=== PATIENT | male | born 1965 | race Two or more races ===

== ENCOUNTER 2017-12-19 09:14 | Inpatient (IN) | payer MEDICAID, MEDICARE ==
[~2017-12-19] VITALS: Ht 172.7 cm; Wt 72.6 kg
--- NOTE | 2017-12-19 10:25 | NUR ---
PT WALKED IN TO ER, STATING "I NEED HELP, I USED CRYSTAL METH YESTERDAY AND I HAD ALCOHOL THIS AM, I JUST CAN'T KEEP DOING." PT ALSO C/O SI W/O PLAN. DENIES HI. PT IS CALM AND COOPERATIVE UPON ASSESSEMENT, NO AGGRESSIVE BEHAVIOR. ASSISTED TO ED BED 11. NAD RR EVEN AND UNLABORED.SKIN IS WARM AND NON DIAPHORETIC.
[2017-12-19] MEDS ORDERED: OLANZAPINE 5 MG TABLET ONE (10:28)
[2017-12-19] MEDS ORDERED: OLANZAPINE 5 MG TABLET PO ONE (10:30)
--- NOTE | 2017-12-19 10:38 | NUR ---
PT REFUSED ZYPREXA. HAWA TEIXEIRA NOTIFIED
[2017-12-19 10:39] LABS: BASOPHILS % (AUTO) 0.2 % (0.0-2.0); EOSINOPHILS % (AUTO) 0.2 % (0.0-6.0); HEMATOCRIT 36 % (39-51); LYMPHOCYTES % (AUTO) 13.4 % (20.0-44.0); MEAN CORPUSCULAR HGB CONC 33 g/dl (31.0-36.0); MEAN CORPUSCULAR VOLUME 83 fL (80-96); MONOCYTES % (AUTO) 6.7 % (2.0-12.0); NEUTROPHILS % (AUTO) 79.5 % (43.0-81.0); PLATELET COUNT (AUTO) 392 /CMM (150-450); RDW COEFFICIENT OF VARIATION 17.3 (11.5-15.0); RED BLOOD CELL COUNT(AUTO) 4.31 MIL/uL (4.5-6.0); WHITE BLOOD COUNT (AUTO) 15.1 K/uL (4.3-11.0)
[2017-12-19 10:41] LABS: APPEARANCE,URINE CLEAR (CLEAR); BILIRUBIN,URINE NEGATIVE (NEGATIVE); BLOOD, URINE NEGATIVE Ery/uL (NEGATIVE); COLOR,URINE YELLOW (YELLOW); KETONES,URINE NEGATIVE (NEGATIVE); LEUKOCYTE ESTERASE ,URINE NEGATIVE (NEGATIVE); NITRITE, URINE NEGATIVE (NEGATIVE); PROTEIN,URINE 1+ mg/dl (NEGATIVE); UGLUCOSE NEGATIVE (NEGATIVE); UROBILINOGEN,URINE 0.2 EU/dL (0.2)
[2017-12-19 10:43] LABS: BACTERIA,URINE None seen /HPF (None Seen); RBC,URINE 0-2 /HPF (0-2); SQUAMOUS EPITHELIAL CELL,UR 0-2 /HPF (None Seen); WBC,URINE 0-2 /HPF (0-3)
[2017-12-19 10:54] LABS: CALCIUM, SERUM 8.9 mg/dL (8.5-10.1); CARBON DIOXIDE 27 mmol/L (21-32); CHLORIDE 100 mmol/L (98-107); CREATININE 0.5 mg/dL (0.6-1.3); GLUCOSE 101 mg/dL (74-106); POTASSIUM 3.9 mmol/L (3.5-5.1); SODIUM SERUM 138 mmol/L (136-145); UREA NITROGEN, BLOOD 16 mg/dL (7-18)
[2017-12-19 10:59] LABS: ALANINE AMINOTRANSFERASE 40 U/L (12-78); ALCOHOL, BLOOD < 3 mg/dL (0-0); ALKALINE PHOSPHATASE 119 U/L (46-116); ASPARTATE AMINOTRANSFERASE 36 U/L (15-37); BILIRUBIN,DIRECT 0.1 mg/dL (0.0-0.2); BILIRUBIN,TOTAL 0.7 mg/dL (0.2-1.0); TOTAL PROTEIN, SERUM 8.1 g/dL (6.4-8.2)
[2017-12-19 11:00] LABS: ACETAMINOPHEN 0 ug/ml (10-30)
[2017-12-19] MEDS ORDERED: MIRTAZAPINE 15 MG TABLET PO ONE (11:00)
[2017-12-19] MEDS ORDERED: chlorproMAZINE HCL 25 MG TABLET PO ONE (11:00)
--- NOTE | 2017-12-19 11:32 | NUR ---
CALLED [facility] FOR PSYCH EVAL
[2017-12-19] MEDS ORDERED: CHLO25TA23 PO (13:02)
[2017-12-19] MEDS ORDERED: CHLO100T24 PO (13:02)
[2017-12-19] MEDS ORDERED: CLON2TAB11 PO (13:02)
[2017-12-19] MEDS ORDERED: MIRT30TA PO (13:02)
--- NOTE | 2017-12-19 13:05 | NUR ---
REPORT GIVEN TO HEATHER HICKS FOR NATHALIE
[2017-12-19] MEDS ORDERED: MAGNESIUM HYDROXIDE 30 ML UDC PO PRN (14:30)
--- NOTE | 2017-12-19 14:30 | NUR ---
GPS/RN ADMITTING ORDERS FROM DR PINEDA RECEIVED AND CARRIED OUT. MONICA EMERY NP MADE AWARE OF ADMISSION
[2017-12-19] MEDS: LORAZEPAM 0.5 MG TABLET PO PRN ×2 (14:47→20:53)
--- NOTE | 2017-12-19 14:50 | NUR ---
GPS/RN-NOTES PATIENT REQUESTING FOR ATIVAN, STATED" I NEED IT I'M ANXIOUS NOW". ATIVAN 1MG P.O GIVEN PRN ORDER. WILL CONT. MONITORING FOR SAFETY AND BEHAVIOR.
--- NOTE | 2017-12-19 15:30 | NUR ---
GPS/RN-NOTES ADMITTED 52 Y.O [place] PATIENT FROM ER. PER HOLD PATIENT ON 5150 FOR DTS/PLAN TO OD WITH DRUGS. PATIENT IS UNDER THE CARE OF DR. PINEDA ( PSYCHIATRIST) AND RAMONA EMERY ( WATCH ELECTRICIAN) BOTH PROVIDER WAS MADE AWARE OF THE PATIENT ADMISSION IN THE UNIT. UPON FACE TO FACE ASSESSMENT WITH THE PATIENT, PATIENT IS GUARDED DID VERBALIZE DEPRESSION AND THAT HE STATED " I TRIED TO OVERDOSE WITH DRUGS BEFORE TO KILL MYSELF". PATIENT DENIES SI/HI,NO VISUAL/AUDITORY HALLUCINATIONS AT THIS TIME. PATIENT WAS REVIEWED PATIENT RIGHTS AND BOOKLET WAS GIVEN TO THE PATIENT. PATIENT REFUSED TO SIGN ADMISSION PAPERS AND REFUSED BODY ASSESSMENT. PATIENT WAS ORIENTED TO THE HOSPITAL UNIT AND POLICIES. PER PATIENT HE HAS NO FAMILY TO BE NOTIFIED ON THE ADMISSION.
--- NOTE | 2017-12-19 16:00 | NUR ---
GPS/RN MONICA EMERY AQUATIC HABITAT BIOLOGIST SEEN THE PATIENT
[2017-12-19 16:31] VITALS: BP 120/78
[2017-12-19] MEDS: ACETAMINOPHEN 325 MG TABLET PO PRN (19:37)
[2017-12-19] MEDS: MAG HYDROX/AL HYDROX/SIMETH 30 ML UDC PO PRN (19:37)
[2017-12-19 20:17] VITALS: BP 117/73
[2017-12-19] MEDS: TEMAZEPAM 7.5 MG CAPSULE PO PRN (21:54)
[2017-12-20 08:00] VITALS: BP 147/78
[2017-12-20] MEDS: LORAZEPAM 0.5 MG TABLET PO PRN ×3 (08:24→21:40)
--- NOTE | 2017-12-20 08:24 | NUR ---
RN NOTE: ANXIOUS. LORAZEPAM 1MG GIVEN.
[2017-12-20] MEDS: ACETAMINOPHEN 325 MG TABLET PO PRN (09:08)
[2017-12-20] MEDS ORDERED: chlorproMAZINE HCL 25 MG TABLET PO SCH (11:00)
[2017-12-20 11:41] LABS: BASOPHILS % (AUTO) 0.4 % (0.0-2.0); EOSINOPHILS % (AUTO) 1.6 % (0.0-6.0); HEMATOCRIT 36 % (39-51); HEMOGLOBIN 11.8 g/dL (13.5-17.5); LYMPHOCYTES % (AUTO) 17.7 % (20.0-44.0); MEAN CORPUSCULAR HGB CONC 33 g/dl (31.0-36.0); MEAN CORPUSCULAR VOLUME 84 fL (80-96); MONOCYTES # (AUTO) 0.8 /CMM (0.1-1.30); MONOCYTES % (AUTO) 6.6 % (2.0-12.0); NEUTROPHILS # (AUTO) 8.5 /CMM (1.8-8.9); NEUTROPHILS % (AUTO) 73.7 % (43.0-81.0); PLATELET COUNT (AUTO) 369 /CMM (150-450); RED BLOOD CELL COUNT(AUTO) 4.21 MIL/uL (4.5-6.0); WHITE BLOOD COUNT (AUTO) 11.5 K/uL (4.3-11.0)
[2017-12-20 11:50] LABS: CALCIUM, SERUM 8.3 mg/dL (8.5-10.1); CREATININE 1.1 mg/dL (0.6-1.3); POTASSIUM 4.1 mmol/L (3.5-5.1)
[2017-12-20 16:00] VITALS: BP 141/72
[2017-12-20] MEDS: chlorproMAZINE HCL 25 MG TABLET PO SCH ×2 (16:19→20:35)
[2017-12-20] MEDS: chlorproMAZINE HCL 25 MG TABLET PO PRN (18:17)
[2017-12-20 19:53] VITALS: BP 135/87
[2017-12-20 20:30] VITALS: BP 127/82
--- NOTE | 2017-12-20 21:30 | NUR ---
GPS RN STAT EKG DONE. CALLED DR. PINEDA TO RELAY RESULTS. WAITING FOR CALL BACK. AT 2154- DR. PINEDA CALLED WITH ORDERS TO RELAY EKG RESULTS TO DANIELLE ARRIAGA DR. EARLY EDUCATION TEACHER. - DONE ORDERED. WAITING FOR FURTHER ORDERS.
[2017-12-20 21:35] VITALS: BP 128/81
--- NOTE | 2017-12-20 22:08 | NUR ---
GPS RN NOTES: DANIELLE TUCKER DR. RV REPAIRER ORDERED FOR TROPONIN LEVEL FOR THIS PATIENT. JEWELRY CUTTER-EDUAR SPOKE TO PATIENT TO EXPLAIN THE NEED FOR THIS BLOOD DRAW. STILL PATIENT REFUSED TO HAVE THE BLOOD DRAW DONE. AT 2120- DANIELLE TUCKER DR RV REPAIRER INFORMED OF THE PATIENT'S REFUSAL. SHE THEN ACKNOWLEDGED THE REFUSAL. NO FURTHER ORDER GIVEN THIS TIME. WILL MONITOR PATIENT FOR MOOD, SAFETY AND BEHAVIOR.
[2017-12-20] MEDS: TEMAZEPAM 7.5 MG CAPSULE PO PRN (23:26)
[2017-12-21 08:00] VITALS: BP 110/64
[2017-12-21] MEDS: LORAZEPAM 0.5 MG TABLET PO PRN ×3 (08:50→22:10)
[2017-12-21] MEDS: chlorproMAZINE HCL 25 MG TABLET PO SCH ×3 (08:50→20:17)
[2017-12-21] MEDS: MAG HYDROX/AL HYDROX/SIMETH 30 ML UDC PO PRN (13:02)
[2017-12-21] MEDS: ACETAMINOPHEN 325 MG TABLET PO PRN ×2 (13:02→19:26)
--- NOTE | 2017-12-21 13:58 | NUR ---
Initial Discharge Plan: Pt is currently homeless, has no contact telephone # nor does he have any support system in place. Pt reported talking to his mother and father however stated they are not able to provide him with any support upon his discharge. Pt agreed to discharge to [facility] for substance use treatment. SW will follow up to ensure pt is safely and adequately discharged.
[2017-12-21 16:00] VITALS: BP 100/60
--- NOTE | 2017-12-21 16:32 | NUR ---
Discharge Planning: SW attempted to complete substance abuse assessment form with pt, however pt was sleeping and unavailable. SW will follow up.
[2017-12-21 20:19] VITALS: BP 113/59
[2017-12-21] MEDS: TEMAZEPAM 7.5 MG CAPSULE PO PRN (21:23)
--- NOTE | 2017-12-21 22:10 | NUR ---
GPS RN NOTE: PATIENT IS ANXIOUS AND RESTLESS. PATIENT REQUESTED FOR ATIVAN. VSS. ADMINISTERED ATIVAN 1MG PO ORDERED. WILL CONTINUE TO MONITOR [id number] FOR SAFETY AND BEHAVIOR.
[2017-12-22 08:00] VITALS: BP 103/58
--- NOTE | 2017-12-22 08:50 | NUR ---
Substance Abuse Assessment: Pt. has a history of chronic alcohol and methamphetamine abuse. Brief intervention and assessment could not be done yesterday due to patient's sleeping as a result of his methamphetamine binge. This will be attempted today. Pt. will be provided substance abuse treatment upon discharge if he is willing to go.
[2017-12-22] MEDS: chlorproMAZINE HCL 25 MG TABLET PO SCH ×4 (08:55→20:05)
[2017-12-22] MEDS: LORAZEPAM 0.5 MG TABLET PO PRN ×3 (10:47→23:02)
--- NOTE | 2017-12-22 10:47 | NUR ---
RN NOTE:PATIENT MEDICATED WITH ATIVAN 1MG FOR ANXIETY WILL CONTINUE TO MONITOR .
[2017-12-22] MEDS: chlorproMAZINE HCL 25 MG TABLET PO PRN (14:13)
[2017-12-22] MEDS: ACETAMINOPHEN 325 MG TABLET PO PRN (14:13)
[2017-12-22] MEDS ORDERED: CLON2TAB PO (15:45)
[2017-12-22] MEDS ORDERED: CHLO25TA13 PO (15:45)
[2017-12-22] MEDS ORDERED: MIRT30TA PO (15:45)
[2017-12-22] MEDS ORDERED: BUPR150T5 PO (15:45)
--- NOTE | 2017-12-22 15:57 | NUR ---
Substance Abuse Intervention: SW completed Substance abuse intervention. Pt declined substance abuse treatment stating "Treatment is a waste of my time it doesn't work." pt signed substance abuse intervention form.
--- NOTE | 2017-12-22 16:00 | NUR ---
RN-CO: Patient wants to file a "writ of habeas corpus." When RN is preparing the form, Dr Brothers called and made an instructions to discharge the patient at 09:00 am, noted. Patient made aware.
[2017-12-22 16:09] VITALS: BP 119/77
[2017-12-22 20:00] VITALS: BP 127/69
[2017-12-22] MEDS: TEMAZEPAM 7.5 MG CAPSULE PO PRN (21:45)
--- NOTE | 2017-12-22 23:02 | NUR ---
GPS RN NOTES: PATIENT IS ANXIOUS AND RESTLESS. PATIENT IS REQUESTING FOR ATIVAN. VSS. ADMINISTERED ATIVAN 1MG PO ORDERED. WILL CONTINUE TO MONITOR [id number] FOR SAFETY AND BEHAVIOR.
[2017-12-23 08:23] VITALS: BP 120/75
[2017-12-23] MEDS: chlorproMAZINE HCL 25 MG TABLET PO SCH (09:00)
--- NOTE | 2017-12-23 09:23 | NUR ---
Discharge Note: Pt will be discharged at 9:30 am to [facility]. Address: [address] [place] [id number]. . Pt presented in an angry mood stating "I am 53. I can take care of myself. You act like you care about me. I just want to get the fuck out of here." Pt denied any SI or HI. Pt refused other shelters and understood that he would have to wait until 7:00 AM December 24 for intake at [facility] stating "I have money. I can pay for a motel tonight if I want." . Pt signed the homeless patient waiver form. Bus tokens provided. Pt was provided with substance abuse resources at [facility], [facility], and Alcoholics Anonymous meeting at at 7:30 PM at [address] [place] [id number]. Senior Product Analyst: Dr. Bao Acevedo Address: [address] [place] [address] . Psychiatrist: Dr. Angel Welch Address: [address] [address] . Addendum: 12/27/17 at 1035 by MANSI QUIROZ Discharge Note: Pt will be discharged at 9:30 am to [facility]. Address: [address] [place] [address]. . Pt presented in an angry mood stating "I am 53. I can take care of myself. You act like you care about me. I just want to get the fuck out of here." Pt denied any SI or HI. Pt refused other shelters and understood that he would have to wait until 7:00 AM December 24 for intake at [facility] stating "I have money. I can pay for a motel tonight if I want." . Pt signed the homeless patient waiver form. Bus tokens provided. Patient was provided with a brief substance abuse intervention and referred to [facility] patient will present at [facility], [address] [place] [id number] at 0900 on 12/24/17 for intake screening. Substance abuse referrals were also provided for [address] [address] , and [facility] [address] [facility] [place] [address] . Senior Product Analyst: Dr. Bao Acevedo Address: [facility] [place] [address] . Psychiatrist: Dr. Angel Welch Address: [address] [address] .
--- NOTE | 2017-12-23 09:30 | NUR ---
GPS/RN-NOTES PATIENT DISCHARGE TO [facility] TODAY. DR. PINEDA AND DR. CONTRERAS AWARE AND AGREES OF PATIENT DISCHARGE WITH ORDERS. ALL DISCHARGE MEDICATIONS WAS REVIEWED WITH THE PATIENT WITH UNDERSTANDING RX WAS GIVEN TO HIM. ALSO ADVISE TO F/U WITH HIS OUTSIDE PSYCHIATRIST AND CASE MAKING MACHINE OPERATOR IN A WEEK. PATIENT DID NOT VERBALIZE SI/HI,DENIES VISUAL/ AUDITORY HALLUCINATIONS AT THE TIME OF DISCHARGE. PATIENT LEFT THE UNIT WITH ALL HIS BELONGINGS,IN STABLE CONDITION,ALERT ORIENTED X4 AMBULATORY WITH STEADY GAIT . ASSISTED BY ONE STAFF IN THE LOBBY FOR SAFETY. BUS TOKENS WAS GIVEN TO THE PATIENT.
== END 2017-12-23 09:30 | disposition home or self-care (01) | DRG 885 ==
LOC: ER 09:17 → GPS 13:25
PROVIDERS: ADMIT Psychiatry & Neurology Psychosomatic Medicine; ATTEND Nurse Practitioner Acute Care
DX: F25.0 Schizoaffective disorder, bipolar type (principal); R45.851 Suicidal ideations; Z59.0 Homelessness; D63.8 Anemia in other chronic diseases classified elsewhere; D72.829 Elevated white blood cell count, unspecified; F15.90 Other stimulant use, unspecified, uncomplicated; F17.210 Nicotine dependence, cigarettes, uncomplicated; F32.9 Major depressive disorder, single episode, unspecified; I25.10 Atherosclerotic heart disease of native coronary artery without angina pectoris; Z72.89 Other problems related to lifestyle
CPT/HCPCS: 36415; 71045-TC; 80048-TC; 80076-TC; 80305; 81000-TC; 83605-TC; 85025-TC; 87040-TC; 87081-TC; A4606; G0480; Q0161; Z7610

== ENCOUNTER 2020-06-01 23:37 | Emergency (ER) | payer MEDICARE, OTHER ==
[~2020-06-01] VITALS: Ht 172.7 cm; Wt 86.2 kg
[~2020-06-01 23:37] MED LIST: BUPR150T5 PO; CHLO25TA13 PO; CLON2TAB PO; MIRT30TA PO
[2020-06-01 23:38] VITALS: BP 150/91
--- NOTE | 2020-06-02 00:20 | NUR ---
PT UNABLE TP PROVIDE URINE SAMPLE AT THIS TIME. PT REQUESTED TO HAVE HIS BELONGINGS BACK TO TAKE OUT THE LEFT OVER METH THAT HE HAD AND WANTED TO TROW IT AWAY, AFTER THOWING AWAY HIS LEFT OVER METH THAT HE AD HE CHANGED HIS MIND AND WANTED TO LEAVE AMA. ER MADW AWARE. ER SPOKE TO PT, ALL RISKS EXPLAINED BY ER . PT VERBALIZE UNDERSTANDING AND SIGNED OUT AMA. PT STATED "IF I WANTED TO TO KILL MYSELF I WOULD HAVE DONE IT ALREADY INSTEAD OF COMING TO THE HOSPITAL."
== END 2020-06-02 00:20 | disposition left against medical advice (07) ==
LOC: ER 23:43
DX: F15.10 Other stimulant abuse, uncomplicated (principal); Z88.8 Allergy status to other drugs, medicaments and biological substances; Z79.899 Other long term (current) drug therapy